=== PATIENT | male | born 1955 | race Caucasian/White ===

== ENCOUNTER 2021-12-22 09:07 | Day surgery (SDC) | payer MEDICARE, OTHER ==
[~2021-12-22] VITALS: Ht 167.6 cm; Wt 104.5 kg
[~2021-12-22 09:07] MED LIST: Advil200 M1 PO; HYDACE5 PO; TUMS PO
== END 2021-12-22 11:45 | disposition home or self-care (01) ==
LOC: ORSCSDS 09:07
PROVIDERS: Internal Medicine Gastroenterology
PROC: 0DBL7ZX Excision of Transverse Colon, Via Natural or Artificial Opening, Diagnostic (ICD-10-PCS; principal; 2021-12-22 10:15)
PROC: 0DBK7ZX Excision of Ascending Colon, Via Natural or Artificial Opening, Diagnostic (ICD-10-PCS; principal; 2021-12-22 10:15)
DX: Z12.11 Encounter for screening for malignant neoplasm of colon (principal); Z86.010 Personal history of colon polyps; K57.30 Diverticulosis of large intestine without perforation or abscess without bleeding; D12.2 Benign neoplasm of ascending colon; D12.3 Benign neoplasm of transverse colon; J44.9 Chronic obstructive pulmonary disease, unspecified; Z87.891 Personal history of nicotine dependence; E66.9 Obesity, unspecified; Z68.37 Body mass index [BMI] 37.0-37.9, adult
CPT/HCPCS: 88305; J2704; J7120

== ENCOUNTER 2023-12-14 06:11 | Day surgery (SDC) | payer MEDICARE, OTHER ==
[~2023-12-14] VITALS: Ht 167.6 cm; Wt 105.7 kg
[2023-12-14] MEDS ORDERED: Tranexamic Acid 100 ML IV ONE (06:22)
[2023-12-14] MEDS ORDERED: CeFAZolin Sodium 2,000 MG VIAL ONE (06:36)
[2023-12-14] MEDS ORDERED: NS 50 ML IV ONE (06:36)
[2023-12-14] MEDS ORDERED: AMLO5 PO (06:47)
[2023-12-14] MEDS ORDERED: Midazolam HCl 1MG / ML 2ML Vial ONE (06:52)
[2023-12-14] MEDS ORDERED: Rocuronium Bromide 10 MG/ML 5ML Injection IV ONE ×2 (06:52→08:48)
[2023-12-14] MEDS ORDERED: FentaNYL Citrate 50 MCG/ML 2 ML Injection ONE (06:52)
[2023-12-14] MEDS ORDERED: propofoL 20 ML IV ONE (06:52)
[2023-12-14] MEDS ORDERED: Dexamethasone Sod Phos 10 MG/ML 1ML VIAL ONE ×2 (06:56→07:34)
[2023-12-14] MEDS ORDERED: Bupivacaine 0.5% HCl 5 MG/ML 30MLVIAL ONE (06:56)
[2023-12-14] MEDS ORDERED: Lidocaine 1%-Epineph 1:100000 20 ML MDV ONE (07:05)
[2023-12-14] MEDS ORDERED: Lactated Ringer's 1,000 ML IV ONE ×2 (07:11→07:44)
--- NOTE | 2023-12-14 07:21 | NUR ---
12/14/23 0721 Juan Barron, BLOCK TIMEOUT 0714 STARTED 0716 FINISHED 07
[2023-12-14] MEDS ORDERED: Ketorolac Tromethamine 30mg Vial ONE (07:34)
[2023-12-14] MEDS ORDERED: Ondansetron HCl 2 MG / ML 2ML Vial ONE (07:34)
[2023-12-14] MEDS ORDERED: Sugammadex Sodium 200 MG/2ML SDV (100 MG/ML) ONE (07:34)
[2023-12-14] MEDS ORDERED: EPINEPhrine HCl 1 MG/ML 1ML Amp XX ONE (07:46)
--- NOTE | 2023-12-14 07:54 | NUR ---
12/14/23 0754 Aury Kelly 1MG OF EPI (1MG/ML) ADDED TO EACH OF THE FIRST THREE BAGS OF LR FOR IRRIGATION AT THE [facility]. 3MG OF EPI TOTAL.
[2023-12-14 09:45] VITALS: BP 147/92
--- NOTE | 2023-12-14 11:05 | NUR ---
12/14/23 1105 Mario Mcintosh PT'S O2 MAINTAINED >94% IN SDU WITH OCCASIONAL, BREIF DROPS LOW 90%. PT WAS ABLE TO RAISE O2 >94% QUICKLY AND SPONTANEOUSLY. HE DENIED DIZZINESS, SOB, AND OTHER RESPIRATORY SYMPTOMS. LAST DROP OCCURRED AT 1018. STATED SHE WOULD BE WITH PT TO MONITOR FOR NEXT FEW DAYS. PT INSTRUCTED TO SLEEP UPRIGHT IN RECLINER FOR AT LEAST 72 HOURS. HE WAS GIVEN INCENTIVE SPIROMETER AND INSTRUCTED IN ITS USE. DR. SALEH CONSULTED AND APPROVED D/C. PT APPEARED ALERT AND RELAXED AT TIME OF D/C.
== END 2023-12-14 10:57 | disposition home or self-care (01) ==
LOC: ORSCSDS 06:11
PROVIDERS: Orthopaedic Surgery Sports Medicine
PROC: 0R5J4ZZ Destruction of Right Shoulder Joint, Percutaneous Endoscopic Approach (ICD-10-PCS; principal; 2023-12-14 07:30)
PROC: 0RNJ4ZZ Release Right Shoulder Joint, Percutaneous Endoscopic Approach (ICD-10-PCS; principal; 2023-12-14 07:30)
PROC: 0LM14ZZ Reattachment of Right Shoulder Tendon, Percutaneous Endoscopic Approach (ICD-10-PCS; principal; 2023-12-14 07:30)
DX: M75.121 Complete rotator cuff tear or rupture of right shoulder, not specified as traumatic (principal); M75.41 Impingement syndrome of right shoulder; M19.011 Primary osteoarthritis, right shoulder; I10 Essential (primary) hypertension; E66.9 Obesity, unspecified; Z68.37 Body mass index [BMI] 37.0-37.9, adult; Z87.891 Personal history of nicotine dependence
CPT/HCPCS: C1713; J0171; J0690; J1100; J1885; J2250; J2405; J2704; J3010; J7120

== ENCOUNTER 2024-03-02 12:05 | Day surgery (SDC) | payer MEDICARE, OTHER ==
[~2024-03-02] VITALS: Ht 167.6 cm; Wt 108.3 kg
[~2024-03-02 12:05] MED LIST changes: +AMLO5 PO; +Balanced Salt Epinephrine Irrigation Solution 500 mL IR SCH; +Lidocaine HCl/Pf 1% 5 ML VIAL XX SCH; +Moxifloxacin HCL 0.5 MG/0.1 ML 0.4MLSYR LEFTEYE SCH; +PHENYLEPHRINE\\TROPICAMIDE\\TETRACAINE OPHTHALMIC DILATING SOLN LEFTEYE PRN; +Povidone-Iodine 450 DROP/30 ML Solution LEFTEYE SCH; +Povidone-Iodine 450 DROP/30 ML Solution ONE; +Tetracaine HCl/Pf 0.5% Opth Soln 4 ml ONE; +Triamcinolone Inj Susp 40 MG / ML 1ML Vial INJ SCH; +Triamcinolone Inj Susp 40 MG / ML 1ML Vial ONE
[2024-03-02] MEDS ORDERED: Diazepam 2 MG Tab ONE (12:41)
[2024-03-02] MEDS ORDERED: Diazepam 5 MG Tab ONE (12:41)
--- NOTE | 2024-03-02 12:54 | NUR ---
03/02/24 Damaris4 Kristal Wright 1238: VERBAL ORDER FROM DR HAWLEY FOR 7 MG PO VALIUM ONCE NOW
[2024-03-02 14:26] VITALS: BP 158/94
== END 2024-03-02 14:34 | disposition home or self-care (01) ==
LOC: ORSCSDS 12:05
PROVIDERS: Ophthalmology
PROC: 08RK3JZ Replacement of Left Lens with Synthetic Substitute, Percutaneous Approach (ICD-10-PCS; principal; 2024-03-02 14:00)
DX: H25.812 Combined forms of age-related cataract, left eye (principal); I10 Essential (primary) hypertension; E66.01 Morbid (severe) obesity due to excess calories; Z68.38 Body mass index [BMI] 38.0-38.9, adult; Z79.899 Other long term (current) drug therapy
CPT/HCPCS: A9270; J3301; V2632